=== PATIENT | female | born 1980 | race Caucasian/White ===

== ENCOUNTER 2017-09-10 11:39 | Emergency (ER) | payer MEDICAID ==
[~2017-09-10] VITALS: Ht 167.6 cm; Wt 86.2 kg
[2017-09-10 12:00] VITALS: Ht 167.6 cm; Wt 86.2 kg
[2017-09-10 13:22] LABS: UA SPECIFIC GRAVITY <=1.005 (1.005-1.035); microscopic required? YES; urine erythrocyte 2+ (NEGATIVE)
[2017-09-10 16:33] VITALS: BP 138/91
== END 2017-09-10 16:33 | disposition home or self-care (01) ==
LOC: ED 11:39
PROVIDERS: Emergency Medicine
DX: N76.0 Acute vaginitis (principal)
CPT/HCPCS: 87491; 87591; J0696; J1885; Q0162